=== PATIENT | male | born 1955 | race African-American/Black ===

== ENCOUNTER 2022-09-18 14:29 | Emergency (ER) | payer OTHER, MEDICAID ==
[~2022-09-18] VITALS: Ht 188 cm; Wt 90.6 kg
[2022-09-18 16:51] VITALS: BP 119/92
[2022-09-18] MEDS ORDERED: IBUPROFEN 800 MG TAB PO ONE ×2 (19:15→19:31)
[2022-09-18] MEDS ORDERED: NAP500T PO ×2 (19:41→20:27)
[2022-09-18] MEDS ORDERED: CYCL-837 PO ×2 (19:41→20:27)
== END 2022-09-18 20:25 | disposition home or self-care (01) ==
LOC: ER 14:29
DX: S00.83XA Contusion of other part of head, initial encounter (principal); I10 Essential (primary) hypertension; X58.XXXA Exposure to other specified factors, initial encounter; Y93.89 Activity, other specified; Y92.89 Other specified places as the place of occurrence of the external cause; Y99.8 Other external cause status

== ENCOUNTER 2022-09-30 09:59 | Emergency (ER) | payer OTHER, MEDICAID ==
[~2022-09-30] VITALS: Ht 188 cm; Wt 91.8 kg
[~2022-09-30 09:59] MED LIST: CYCL-837 PO; NAP500T PO
[2022-09-30 10:05] VITALS: BP 137/91
[2022-09-30] MEDS ORDERED: ACET-1080 PO (12:05)
== END 2022-09-30 12:08 | disposition home or self-care (01) ==
LOC: ER 09:59
DX: S00.83XA Contusion of other part of head, initial encounter (principal); I10 Essential (primary) hypertension; Z79.899 Other long term (current) drug therapy; W19.XXXA Unspecified fall, initial encounter; Y93.89 Activity, other specified; Y92.512 Supermarket, store or market as the place of occurrence of the external cause; Y99.8 Other external cause status
CPT/HCPCS: 70110